=== PATIENT | male | born 1950 | race Caucasian/White ===

== ENCOUNTER 2019-05-25 07:48 | Day surgery (SDC) | payer BC ==
[2019-05-24 08:34] VITALS: BMI 31.3
[~2019-05-25 07:48] MED LIST: LACTATED RINGERS 1,000 ML IV SCH; LIDOCAINE 1% 20 ML VIAL (10MG/ML) FOR IV START INTRADERMA PRN
[2019-05-25 08:12] VITALS: TEMP 97.5
--- NOTE | 2019-05-25 08:13 | P.GSHP ---
History of Present Illness H&P Date: 05/25/19 CHIEF COMPLAINT: Colon screen HISTORY OF PRESENT ILLNESS: The patient is a 68-year-old male who presents for colon screen. Lower endoscopy was offered for further evaluation and management. PAST MEDICAL HISTORY: Please see list. PAST SURGICAL HISTORY: Please see list. MEDICATIONS: Please see list. ALLERGIES: Please see list. SOCIAL HISTORY: No illicit drug use FAMILY HISTORY: No reports of Crohn disease or ulcerative colitis. REVIEW OF ORGAN SYSTEMS: CONSTITUTIONAL: No reports of fevers or chills. PHYSICAL EXAM: VITAL SIGNS: Stable GENERAL: Well-developed pleasant in no acute distress. HEENT: No scleral icterus. Extraocular movements grossly intact. Moist buccal mucosa. NECK: Supple without lymphadenopathy. CHEST: Unlabored respirations. Equal bilateral excursions. CARDIOVASCULAR: Regular rate and rhythm. Distal 2+ pulses. ABDOMEN: Soft, nontender, nondistended. MUSCULOSKELETAL: No clubbing, cyanosis, or edema. ASSESSMENT: 1. Colon screen. PLAN: 1. Recommend proceeding with a lower endoscopy Past Medical History Past Medical History: Hyperlipidemia Additional Past Medical History / Comment(s): BLOOD IN URINE SAMPLE History of Any Multi-Drug Resistant Organisms: None Reported Past Surgical History: Orthopedic Surgery, Tonsillectomy Additional Past Surgical History / Comment(s): RIGHT ARTHROSCOPIC KNEE SURGERY Past Anesthesia/Blood Transfusion Reactions: Motion Sickness Smoking Status: Former smoker - Past Family History Mother Family Medical History: Cancer Additional Family Medical History / Comment(s): LUNG PROBLEMS Father Family Medical History: Cancer Medications and Allergies Home Medications Medication Instructions Recorded Confirmed Type Atorvastatin [Lipitor] 40 mg PO DAILY 05/24/19 05/25/19 History Cephalexin [Keflex] 500 mg PO Q6HR 05/24/19 05/25/19 History Allergies Allergy/AdvReac Type Severity Reaction Status Date / Time Penicillins Allergy Swelling Verified 05/25/19 08:00 Surgical - Exam Vital Signs Temp Pulse Resp BP Pulse Ox 97.5 F L 54 L 16 141/67 95 05/25/19 07:59 05/25/19 07:59 05/25/19 07:59 05/25/19 07:59 05/25/19 07:59
[2019-05-25] MEDS ORDERED: PROPOFOL 10 MG/ML 20 ML VIAL IV ONE (08:36)
--- NOTE | 2019-05-25 09:10 | P.PCN ---
Date of Procedure: 05/25/19 Description of Procedure: PREOPERATIVE DIAGNOSIS: Personal history of colon polyps Family history colon polyps Colonoscopy screening POSTOPERATIVE DIAGNOSIS: Personal history of colon polyps Family history colon polyps Colonoscopy screening Ascending colon polyp Mid transverse colon polyp Distal transverse colon polyp Sigmoid diverticulosis Internal hemorrhoids, grade 2 External hemorrhoids, grade 2 OPERATION: Colonoscopy to the ileocecal valve and appendiceal orifice. Colonoscopy with multiple hot snare polypectomies Colonoscopy with cold forceps biopsies SURGEON: Vanna Mcdowell MD. ANESTHESIA: MAC. INDICATIONS: The patient is an 68-year-old male who presents family history of malignant colon polyps and personal history of colon polyps. Last colonoscopy 3 years. Benefits and risks were described and informed consent was obtained. DESCRIPTION OF PROCEDURE: The patient had undergone Suprep. He had been brought into the operating room and laid in the left lateral decubitus position. After adequate intravenous sedation, the rectum was examined with 2% lidocaine jelly. The prostate was unremarkable. External hemorrhoids were encountered. The rectal tone was within normal limits. No lesions were palpated in the rectal vault. An Olympus colonoscope was advanced until the ileocecal valve and appendiceal orifice were clearly viewed. The prep was excellent. Sigmoid diverticulosis was encountered. Multiple colonic polyps were found and snare polypectomy. No evidence of focal colitis was found. Retroflexion of the scope demonstrated grade 2 internal hemorrhoids without active bleeding or inflammation. The colon was desufflated. The patient had tolerated the procedure well. Withdrawal time was over 6 minutes. FINDINGS: Aronchick preparation quality scale 1 (1-5) Internal hemorrhoids, grade 2 with recent inflammation and bleeding External hemorrhoids, grade 2. No arteriovenous malformations. Sigmoid diverticulosis Removal of 3 polyps from the proximal, mid transverse colon and descending colon: - Snare polypectomy at mid transverse colon, 6 mm tubulovillous adenoma polyp. - Cold forceps biopsy at ascending colon, 4 mm polyp. - Cold forceps biopsy at distal transverse colon, 4 mm polyp. No focal colitis. RECOMMENDATIONS: Given severity of tubular adenomas, recommend repeat colonoscopy in 3 years, 2022 Plan - Discharge Summary Discharge Rx Participant: No New Discharge Prescriptions: No Action Atorvastatin [Lipitor] 40 mg PO DAILY Cephalexin [Keflex] 500 mg PO Q6HR Discharge Medication List Atorvastatin [Lipitor] 40 mg PO DAILY 05/24/19 [History] Cephalexin [Keflex] 500 mg PO Q6HR 05/24/19 [History] Follow up Appointment(s)/Referral(s): Vanna Mcdowell MD [STAFF PHYSICIAN] - As Needed Patient Instructions/Handouts: Diverticulosis Diet (GEN), Diverticulosis (DC), Colorectal Polyps (GEN) Activity/Diet/Wound Care/Special Instructions: Repeat colonoscopy 3 years, 2022 Discharge Disposition: HOME SELF-CARE
[2019-05-25 09:43] VITALS: BP 144/79; PULSE 49; RESP 20
== END 2019-05-25 09:54 | disposition home or self-care (01) ==
LOC: ORWHC2ENDO 07:48
PROVIDERS: ATTEND Surgery Plastic and Reconstructive Surgery
DX: Z12.11 Encounter for screening for malignant neoplasm of colon (principal); D12.2 Benign neoplasm of ascending colon; D12.3 Benign neoplasm of transverse colon; K57.30 Diverticulosis of large intestine without perforation or abscess without bleeding; K64.1 Second degree hemorrhoids; K64.4 Residual hemorrhoidal skin tags; Z86.010 Personal history of colon polyps; Z83.71 Family history of colonic polyps; E78.5 Hyperlipidemia, unspecified; Z98.890 Other specified postprocedural states; Z80.9 Family history of malignant neoplasm, unspecified; Z79.899 Other long term (current) drug therapy; Z88.0 Allergy status to penicillin; Z87.891 Personal history of nicotine dependence
CPT/HCPCS: 88305; 45380; 45385; J2704

== ENCOUNTER → 2020-05-22 | Outpatient (CLI) | payer BC ==
--- NOTE | 2020-05-22 12:10 | US ---
EXAMINATION TYPE: US duplex aorta DATE OF EXAM: 05/22/2020 COMPARISON: NONE CLINICAL HISTORY: Z13.6 Screening for cardiovascular disorders. AAA screening EXAM MEASUREMENTS: Abdominal Aorta: Proximal: 2.0 x 2.2 cm Mid: 1.6 x 1.7 cm Distal: 1.5 x 1.5 cm Bifurcation: NINA: 1.0 x 1.0 cm REJI: 1.1 x 1.0 cm No evidence of AAA, grayscale and color Doppler, spectral Doppler imaging performed, triphasic wa veforms are present there is color flow within the aorta IMPRESSION: No aortic aneurysm
== END | disposition home or self-care (01) ==
LOC: RADUSWWP 07:20
PROVIDERS: ATTEND Family Medicine
DX: Z13.6 Encounter for screening for cardiovascular disorders (principal)
CPT/HCPCS: 93979

== ENCOUNTER → 2021-03-15 | Outpatient (CLI) | payer BC ==
--- NOTE | 2021-03-15 14:01 | XR ---
EXAMINATION TYPE: XR chest 2V DATE OF EXAM: 03/15/2021 COMPARISON: NONE HISTORY: Congestion TECHNIQUE: Frontal and lateral views of the chest are obtained. FINDINGS: There is no focal air space opacity, pleural effusion, or pneumothorax seen. The cardiac silhouette size is within normal limits. The osseous structures are intact. IMPRESSION: No acute cardiopulmonary process.
--- NOTE | 2021-03-15 15:08 | XR ---
EXAMINATION TYPE: XR hand complete RT DATE OF EXAM: 03/15/2021 CLINICAL HISTORY: Right hand pain and weakness near base of first metacarpal TECHNIQUE: Frontal, lateral and oblique images of the right hand are obtained. COMPARISON: None. FINDINGS: There is no acute fracture/dislocation evident in the right hand. The joint spaces in the right hand appear within normal limits. The overlying soft tissue appears unremarkable. IMPRESSION: There is no acute fracture or dislocation in the right hand.
== END | disposition home or self-care (01) ==
LOC: RADXRMAIN 10:00
PROVIDERS: ATTEND Nurse Practitioner
DX: R09.89 Other specified symptoms and signs involving the circulatory and respiratory systems (principal); M79.641 Pain in right hand
CPT/HCPCS: 71046

== ENCOUNTER → 2021-06-26 | Outpatient (CLI) | payer BC ==
[2021-06-26 18:58] LABS: Basophils # (A) 0.05 X 10*3/uL (0.00-0.10); Basophils % (A) 0.9 %; Eosinophils # (A) 0.08 X 10*3/uL (0.04-0.35); Eosinophils % (A) 1.5 %; HCT 39.5 % (39.6-50.0); HGB 12.8 g/dL (13.0-17.0); Immature Grans, Automated 0.2 %; Lymphocytes # (A) 1.54 X 10*3/uL (0.90-5.00); Lymphocytes % (A) 28.9 %; MCHC 32.4 g/dL (32.0-37.0); MCV 98.8 fL (80.0-97.0); Mean Platelet Volume 10.6 fL (9.5-12.2); Monocytes # (A) 0.46 X 10*3/uL (0.20-1.00); Monocytes % (A) 8.6 %; NRBC Per 100 WBC 0 /100 WBCS (0.0-0.0); Neutrophils # (A) 3.18 X 10*3/uL (1.80-7.70); Neutrophils % (A) 59.9 %; Platelet Count 266 X 10*3/uL (140-440); RDW 14.7 % (11.5-14.5); WBC 5.32 X 10*3/uL (4.50-10.00)
[2021-06-27 11:28] LABS: Alt. alternata IgE Class CLASS 0; Alternaria alternata IgE <0.10 kU/L (<0.10); Asperg. fumagatus IgE <0.10 kU/L (<0.10); Asperg. fumagatus IgE Class CLASS 0; Candida albicans IgE Class CLASS 0/1; Clad herbarum IgE <0.10 kU/L (<0.10); Clad herbarum IgE Class CLASS 0; Latex IgE Class CLASS 1; Mucor racemosus IgE 0.49 kU/L (<0.10); Mucor racemosus IgE Class CLASS 1; Penicillium chrysogenum IgE <0.10 kU/L (<0.10); Penicillium chrysogenum IgE Cl CLASS 0
== END | disposition home or self-care (01) ==
LOC: LABWHC1 10:55
PROVIDERS: ATTEND Internal Medicine Sleep Medicine
DX: B44.81 Allergic bronchopulmonary aspergillosis (principal)
CPT/HCPCS: 36415; 82785; 85025; 86001; 86003; 86606; 86609

== ENCOUNTER → 2021-08-20 | Outpatient (CLI) | payer BC ==
--- NOTE | 2021-08-20 13:02 | P.STRESS ---
- Stress Test Note Stress Test Results/Findings: Exam Performed: stress echo exercise with con Exam Date: 08/20/21 Reason for Exam: SHORTNESS OF BREATH Height: 5 ft 9 in Weight: 97.522 kg Protocol: RAN Stage: 4 Duration of Exercise: 10:12 Resting Heart Rate: 53 Resting Blood Pressure: 152/85 Maximum Achieved Heart Rate: 144 Maximum Achieved Blood Pressure: 212/83 85% PMHR: 128 100% PMHR: 151 METS: 11.5 Technologist Comment: Stress Test Results/Findings: This is a 71-year-old gentleman with history of CVA being evaluated for symptoms of chest pain and shortness of breath.. Stress data: Baseline EKG showed a sinus rhythm. Blood pressure at rest is 150/85, pulse rate of 53. Patient walked on the Ran protocol for 10 minutes and 12 seconds, reaching a maximum rate of 144 with a peak blood pressure 212/83. EKGs taken during and after exercise did not reveal any significant changes from the baseline. Echo data: Baseline echo images show normal wall motion and thickening. Exercise echo images showed augmentation of wall motion and thickening in all the segments. Final impression: #1. Negative stress test #2. Negative stress echo
--- NOTE | 2021-08-20 16:24 | CA ---
Transthoracic Echo Report Name: Mando Medina Age: 71 Gender: M : 1950 Exam Date: 08/20/2021 09:52 Exam Location: [facility] Ht (in): 69 Wt (lb): 210 Ordering Physician: Ronny Rios MD Attending/Referring Phys: [id number], Gabriel Induction Heat Treater Karen Cuevas, [facility] Procedure CPT: Indications: R07.9 CP, R00.2 Palpitations, R03.0 Elevated BP Cardiac Hx: Technical Quality: Good Contrast 1: Total Dose (mL): Contrast 2: Total Dose (mL): MEASUREMENTS (Male / Female) Normal Values 2D ECHO LV Diastolic Diameter PLAX 4.9 cm 4.2 - 5.9 / 3.9 - 5.3 cm LV Systolic Diameter PLAX 3.6 cm IVS Diastolic Thickness 1.1 cm 0.6 - 1.0 / 0.6 - 0.9 cm LVPW Diastolic Thickness 1.5 cm 0.6 - 1.0 / 0.6 - 0.9 cm LV Relative Wall Thickness 0.5 RV Internal Dim ED PLAX 3.0 cm M-MODE Aortic Root Diameter MM 2.7 cm LA Systolic Diameter MM 3.3 cm LA Ao Ratio MM 1.2 AV Cusp Separation MM 2.0 cm DOPPLER MV Area PHT 3.1 cm Mitral E Point Velocity 54.9 cm/s Mitral A Point Velocity 91.6 cm/s Mitral E to A Ratio 0.6 MV Deceleration Time 245.8 ms MV E' Velocity 10.5 cm/s Mitral E to MV E' Ratio 5.2 TR Peak Velocity 140.0 cm/s TR Peak Gradient 7.8 mmHg Right Ventricular Systolic Press 12.8 mmHg FINDINGS Left Ventricle Mildly increased septal wall thickness. Left ventricular ejection fraction is estimated at 50-55 %. Right Ventricle The right ventricle is normal in size and function. Right Atrium The right atrium is normal in size. Left Atrium The left atrium is normal in size. Mitral Valve Structurally normal mitral valve without significant stenosis or prolapse. trace regurgitation. Aortic Valve Structurally normal aortic valve without significant sclerosis or stenosis. There is no aortic regurgitation. Tricuspid Valve Structurally normal tricuspid valve without significant stenosis. Pulmonary artery systolic pressure is normal. Pulmonic Valve Structurally normal pulmonic valve without significant stenosis. There is no pulmonic regurgitation. Pericardium Normal pericardium without effusion. Aorta Normal aortic root dimension. CONCLUSIONS #1. Mild septal hypertrophy. Left ankle function is preserved with ejection fraction of 55%. #2. Normal valvular structure and function. #3. There is no pericardial effusion Previewed by: Dr. Oj Valencia MD (Electronically Signed) Final Date: 20 August 2021 12:33
--- NOTE | 2021-08-23 14:12 | HM ---
This is a report on the 24-hour Holter monitor. Baseline EKG showed sinus rhythm. Average heart rate is 64 bpm. The minimum is 46 bpm observed during night and maximum is 1 10 bpm. . Patient had occasional APCs with one run of nonsustained SVT consisting of 7 beats at a rate of about 110-120. Patient had occasional PVCs with occasional couplets and rare triplets. No sustained ventricular arrhythmias. Patient complained of intermittent palpitations while driving and seemed to be having occasional PVCs. Final impression #1. Sinus rhythm. #2. Occasional PVCs with bigeminy pattern on couplets. Patient's palpitations seemed to be somewhat correlating with PVCs. #3. Occasional APCs with a brief episode of nonsustained SVT consisting of 67 beats. MTDD
== END | disposition home or self-care (01) ==
LOC: RADNMMAIN 09:21
PROVIDERS: ATTEND Family Medicine
DX: I49.3 Ventricular premature depolarization (principal); I51.7 Cardiomegaly
CPT/HCPCS: 93225; 93226; 93306; 93351; 93005; Q9950

== ENCOUNTER → 2023-01-19 | Outpatient (CLI) | payer BC ==
[2023-01-19 16:22] LABS: African American GFR (CKD) 75 (>60 ml/min/1.73 sqM); Blood Urea Nitrogen 23 mg/dL (9-20); Non-African American GFR(CKD) 65 (>60 ml/min/1.73 sqM)
--- NOTE | 2023-01-20 08:39 | CT ---
EXAMINATION TYPE: CT soft tissue neck w con DATE OF EXAM: 01/19/2023 5:03 PM COMPARISON: HISTORY: Mass on right side of neck. CT DLP: 574.8 mGycm Automated exposure control for dose reduction was used. CONTRAST: CT scan of the neck is performed following with IV Contrast, patient injected with 100 ml mL of Isovu e 300. Axial images are obtained, coronal and sagittal reformatted images are reviewed. FINDINGS: Airway: No gross abnormality seen. Parotid/submandibular glands: There is a 1.8 cm mass which appears to be arising from the right paro tid gland Carotid/Vascular Structures: Patent Osseous Structures: Multilevel hypertrophic and degenerative change with facet arthropathy. There is a kyphosis of the spine. Other: Emphysematous changes involving the lung apices. Nasal septal deviation. IMPRESSION: 1. 1.8 cm right parotid gland mass.
== END | disposition home or self-care (01) ==
LOC: RADCTMAIN 15:44
PROVIDERS: ATTEND Family Medicine
DX: R22.1 Localized swelling, mass and lump, neck (principal)
CPT/HCPCS: 82565; 84520; 70491; 36415; Q9967

== ENCOUNTER 2023-03-12 12:51 | Day surgery (SDC) | payer BC ==
[2023-03-12 14:02] VITALS: RESP 16; TEMP 97.9
--- NOTE | 2023-03-12 14:20 | US ---
ULTRASOUND GUIDED CORE BIOPSY RIGHT PAROTID MASS: CLINICAL HISTORY: Right parotid mass FINDINGS: The procedure was explained to the patient. The risks, complications, benefits and alternatives were discussed and any questions were answered. Informed consent was obtained. Patient was placed supin e on the ultrasound table and prepped and draped in the usual sterile fashion. Utilizing a 18-gauge core biopsy needle, two passes were made into the requested right parotid mass. Patient was stable throughout the procedure. Pathology is pending. All elements of maximal barrier technique were utilized. IMPRESSION: 1. Successful ultrasound guided core biopsy right parotid mass.
[2023-03-12 14:51] VITALS: BP 151/71; PULSE 61
== END 2023-03-12 14:31 | disposition home or self-care (01) ==
LOC: RADPROMAIN 12:51
PROVIDERS: ATTEND Otolaryngology
DX: D11.0 Benign neoplasm of parotid gland (principal)
CPT/HCPCS: 10005; 88305

== ENCOUNTER → 2023-05-13 | Day surgery (SDC) | payer BC ==
[2023-05-08 09:31] VITALS: BMI 32.5
[~2023-05-13] MED LIST changes: +BACITRACIN ZINC 500 UNIT/GM OINT 28.4 GM TUBE TOPICAL ONE; +DEXAMETHASONE SOD PHOSPHATE 4 MG/ML 1 ML VIAL IVP ONE; +FAMOTIDINE 20 MG/2 ML VIAL IV PRN; +HYDROmorphone 0.5 MG/0.5 ML SYRINGE IVP PRN; +LIDOCAINE 1% (10MG/ML) FOR IV START INTRADERMA PRN; -LIDOCAINE 1% 20 ML VIAL (10MG/ML) FOR IV START INTRADERMA PRN; +LIDOCAINE 1% INJ 10MG/ML (20 ML MDV) ONE; +LIDOCAINE 1%-EPI 1:100,000 20 ML VIAL SQ ONE; +MIDAZOLAM 2 MG/2 ML VIAL ONE; +ONDANSETRON 4 MG/2 ML VIAL IVP ONE; +PROPOFOL 10 MG/ML 20 ML VIAL IV ONE; +SUCCINYLCHOLINE CHLORIDE 200 MG/10 ML VIAL IV ONE; +droPERidol 5 MG/2 ML VIAL IVP ONE; +fentaNYL (PF) 50 MCG/ML 2 ML AMP ONE
[2023-05-13 11:05] VITALS: TEMP 97.1
--- NOTE | 2023-05-13 13:23 | P.OP ---
Date of Procedure: 05/13/23 Preoperative Diagnosis: Right parotid mass Postoperative Diagnosis: Same Procedure(s) Performed: Right superficial parotidectomy with facial nerve dissection and preservation Right facial nerve monitoring-electrophysiologic Anesthesia: ELYSEA Surgeon: Roberto Alanis Estimated Blood Loss (ml): 5 Pathology: other (Right parotid mass) Condition: stable Disposition: PACU Indications for Procedure: This 72-year-old white male developing right parotid/upper neck mass. 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 The patient underwent induction of general anesthesia with oral endotracheal intubation without difficulty. The table was turned 90 and patient positioned with a head donut and shoulder roll. The NIM II facial nerve monitor was placed to monitor the orbicularis angeles and orbicularis oculi muscles and was tested and was working well. The patient was prepped and draped in the usual aseptic fashion. A slightly curvilinear right upper neck incision was made in a relaxed skin tension line 2 cm inferior to the angle of mandible. This was carried sharply through the skin and subcutaneous tissue and platysma muscle. The mass was immediately identified anterior to the sternocleidomastoid muscle. The irregular nerve was identified and able to be preserved. The lesion was dissected from the underlying sternocleidomastoid muscle from inferior to superior initially and also the anterior aspect was dissected. The superior aspect was dissected from the parotid gland including a cuff of normal parotid. Tissue and in doing so the lower division of the facial nerve was identified and preserved. The lesion was then excised from the surrounding tissue grossly entirely and well encapsulated. The facial nerve was noted to be intact and stimulated well at .5 mA The wound was copiously irrigated with sterile normal saline. Excellent hemostasis was noted. There was a shallow defect and theref ore drain was not placed. The platysma layer was closed with inverted interrupted 3-0 Vicryl suture subcutaneous layers deep and superficial were closed with inverted interrupted 5-0 Vicryl suture skin closed with running locking 4-0 Prolene suture. Bacitracin ointment and sterile dressing were placed. The patient was allowed to emerge from general anesthesia having tolerated procedure well was extubated in the operating suite and transferred to the postop recovery area in satisfactory condition. Facial nerve movement was noted to be normal.
[2023-05-13 14:39] VITALS: RESP 14
[2023-05-13 15:03] VITALS: BP 124/72; PULSE 48
== END | disposition home or self-care (01) ==
LOC: OR 10:34
PROVIDERS: ATTEND Otolaryngology
DX: K11.8 Other diseases of salivary glands (principal)
CPT/HCPCS: 42415; 88307; J2250; J0330; J1100; J0690; J2405; J2001; J3010; J3490; J2704; J1170